=== PATIENT | male | born 2000 | race Two or more races ===

== ENCOUNTER 2021-10-22 14:24 | Emergency (ER) | payer OTHER ==
[~2021-10-22] VITALS: Ht 172.7 cm; Wt 93.0 kg
[2021-10-22] MEDS ORDERED: ORPHENADRINE C100 MG PO (15:43)
[2021-10-22] MEDS ORDERED: EC-NAPROSYN375 MG PO (15:43)
== END 2021-10-22 15:51 | disposition home or self-care (01) ==
LOC: ER 14:24
DX: M94.0 Chondrocostal junction syndrome [Tietze] (principal); R07.89 Other chest pain

== ENCOUNTER 2022-02-06 12:21 | Outpatient (CLI) | payer OTHER ==
[~2022-02-06 12:21] MED LIST: EC-NAPROSYN375 MG PO; ORPHENADRINE C100 MG PO
== END 2022-02-06 12:23 | disposition home or self-care (01) ==
LOC: LAB 12:21
PROVIDERS: ATTEND Obstetrics & Gynecology
DX: Z20.818 Contact with and (suspected) exposure to other bacterial communicable diseases (principal); Z20.828 Contact with and (suspected) exposure to other viral communicable diseases